=== PATIENT | male | born 1980 | race Two or more races ===

== ENCOUNTER 2016-10-02 09:43 | Emergency (ER) | payer SELFPAY ==
[~2016-10-02] VITALS: Ht 175.3 cm; Wt 72.6 kg
[2016-10-02 09:50] VITALS: BP 118/76
== END 2016-10-02 10:31 | disposition home or self-care (01) ==
LOC: EDUNIT# 09:43 → ER 09:45
DX: J20.9 Acute bronchitis, unspecified (principal); J45.909 Unspecified asthma, uncomplicated; F17.200 Nicotine dependence, unspecified, uncomplicated; F12.10 Cannabis abuse, uncomplicated; Z76.0 Encounter for issue of repeat prescription

== ENCOUNTER 2016-10-02 15:02 | Emergency (ER) | payer SELFPAY ==
[~2016-10-02] VITALS: Ht 175.3 cm; Wt 72.6 kg
[2016-10-02 15:08] VITALS: BP 137/86
[2016-10-02] MEDS ORDERED: IPRATROPIUM BROM 0.5 MG/2.5ML INH SOL NEB ONE (15:15)
[2016-10-02] MEDS ORDERED: ALBUTEROL SULF 2.5 MG/0.5ML(0.5%) NEB SOLN NEB ONE (15:15)
== END 2016-10-02 21:15 | disposition left against medical advice (07) ==
LOC: ER 15:05
DX: R06.02 Shortness of breath (principal); R06.2 Wheezing; Z53.21 Procedure and treatment not carried out due to patient leaving prior to being seen by health care provider
CPT/HCPCS: 71020; 94640